=== PATIENT | female | born 1975 | race Two or more races ===

== ENCOUNTER 2024-09-16 10:18 | Outpatient (CLI) | payer OTHER | END 2024-09-16 10:20 | disposition home or self-care (01) | LOC: SONOGRAMA 10:18 | PROVIDERS: ATTEND Pathology Anatomic Pathology & Clinical Pathology | DX: D34 Benign neoplasm of thyroid gland (principal); E07.89 Other specified disorders of thyroid; E04.2 Nontoxic multinodular goiter ==